=== PATIENT | female | born 1985 | race Caucasian/White ===

== ENCOUNTER → 2020-06-14 | Outpatient (CLI) | payer OTHER | LOC: COL.RAD 09:15 | DX: M51.17 Intervertebral disc disorders with radiculopathy, lumbosacral region (principal); M47.26 Other spondylosis with radiculopathy, lumbar region ==

== ENCOUNTER 2020-09-27 14:49 | Emergency (ER) | payer OTHER ==
[~2020-09-27] VITALS: Ht 157.5 cm; Wt 94.1 kg
[2020-09-27 14:53] VITALS: TEMP 98.7
[2020-09-27] MEDS ORDERED: MOTRIN 800800 MG/TAB PO (15:06)
[2020-09-27] MEDS ORDERED: CYMBALTA 60MG60 MG PO (15:06)
[2020-09-27] MEDS ORDERED: INDERAL 10MG10 MG PO (15:06)
[2020-09-27] MEDS ORDERED: TYLENOL 325MG325 MG PO (15:07)
[2020-09-27 15:50] LABS: BASO % 0.4 % (0.0-2.0); EOS # 0.2 (0.0-0.7); EOS % 1.6 % (0-4.0); GRAN # 6.7 (1.4-6.5); GRAN % 65.3 % (42.2-75.2); HEMATOCRIT 40.1 % (37.0-47.0); HEMOGLOBIN 13.8 g/dl (12.5-16.0); LYMPH # 2.7 (1.2-3.4); LYMPH % 26.5 % (20.0-51.0); MEAN CELL VOLUME 89 fl (80.0-100.0); MEAN CORPUSCULAR HEMOGLOBIN 31 pg (27.0-31.0); MEAN CORPUSCULAR HGB CONC 34 g/dl (33.0-37.0); MEAN PLATELET VOLUME 9.6 fl (7.4-10.4); MONO # 0.6 (0.1-0.6); PLATELET COUNT 310 K/mm3 (130-400); RED BLOOD COUNT 4.51 M/mm3 (4.10-5.30); REDCELL DISTRIBUTION WIDTH-CV 12.1 % (11.5-14.5)
[2020-09-27 16:01] LABS: ALANINE AMINOTRANSFERASE 13 U/L (4-34); ALBUMIN 4.5 gm/dL (3.5-5.0); ALKALINE PHOSPHATASE 93 U/L (50-136); ANION GAP 11 mmol/L (7-16); AST,SGOT 22 U/L (15-37); BILIRUBIN,TOTAL 0.4 mg/dL (0.0-1.0); BLOOD UREA NITROGEN 12 mg/dL (7-17); CALCIUM 9.2 mg/dL (8.4-10.2); CARBON DIOXIDE 22 mmol/L (22-30); CHLORIDE 106 mmol/L (98-107); CREATININE, serum 0.74 (0.52-1.25); GLUCOSE 98 mg/dL (74-106); SODIUM 139 mmol/L (137-145); TOTAL PROTEIN 7.8 gm/dL (6.4-8.2)
[2020-09-27 16:15] LABS: TROPONIN-I < 0.012 ng/mL (0.000-0.035)
[2020-09-27] MEDS ORDERED: ATIVAN 1MG T1 MG/TAB PO (16:49)
[2020-09-27 17:02] VITALS: BP 138/101; PULSE 81
== END 2020-09-27 17:05 | disposition home or self-care (01) ==
LOC: COL.ER 14:49
PROVIDERS: Physician Assistant
DX: R00.2 Palpitations (principal); I10 Essential (primary) hypertension; F41.9 Anxiety disorder, unspecified; Z32.02 Encounter for pregnancy test, result negative; Z23 Encounter for immunization
CPT/HCPCS: J2060; J7030

== ENCOUNTER → 2020-09-27 | Outpatient (CLI) | payer OTHER ==
[~2020-09-27] MED LIST: ATIVAN 1MG T1 MG/TAB PO; CYMBALTA 60MG60 MG PO; INDERAL 10MG10 MG PO; MOTRIN 800800 MG/TAB PO; TYLENOL 325MG325 MG PO
== END ==
LOC: MHCPAIN 13:26
DX: M47.817 Spondylosis without myelopathy or radiculopathy, lumbosacral region (principal); M54.5 Low back pain; M53.3 Sacrococcygeal disorders, not elsewhere classified; G89.29 Other chronic pain
CPT/HCPCS: G0463

== ENCOUNTER → 2020-10-03 | Outpatient (CLI) | payer OTHER | LOC: MHCPAIN 11:50 | DX: M47.817 Spondylosis without myelopathy or radiculopathy, lumbosacral region (principal); M54.5 Low back pain ==

== ENCOUNTER 2020-11-30 08:40 | Outpatient (RCR) | payer OTHER | END 2021-02-28 | disposition home or self-care (01) | LOC: WSPT | DX: M47.816 Spondylosis without myelopathy or radiculopathy, lumbar region (principal); M53.3 Sacrococcygeal disorders, not elsewhere classified ==

== ENCOUNTER → 2020-12-05 | Outpatient (CLI) | payer OTHER | LOC: MHCPAIN 14:43 | DX: M47.817 Spondylosis without myelopathy or radiculopathy, lumbosacral region (principal); M54.5 Low back pain | CPT/HCPCS: G0463 ==

== ENCOUNTER 2021-01-03 12:00 | Outpatient (RCR) | payer OTHER | END 2021-01-11 | LOC: WSPT | DX: M47.816 Spondylosis without myelopathy or radiculopathy, lumbar region (principal); M53.3 Sacrococcygeal disorders, not elsewhere classified ==

== ENCOUNTER → 2021-01-23 | Outpatient (CLI) | payer OTHER | LOC: MHCPAIN 09:48 | DX: M47.817 Spondylosis without myelopathy or radiculopathy, lumbosacral region (principal); M54.5 Low back pain; M79.18 Myalgia, other site; G89.29 Other chronic pain | CPT/HCPCS: G0463; J1100; J2250; J3010 ==

== ENCOUNTER 2021-02-27 12:41 | Emergency (ER) | payer OTHER ==
[~2021-02-27] VITALS: Ht 157.5 cm; Wt 97.7 kg
[2021-02-27 13:10] VITALS: BP 121/80; TEMP 98.2
[2021-02-27 16:24] VITALS: PULSE 91
== END 2021-02-27 16:25 | disposition home or self-care (01) ==
LOC: COL.ER 12:41
DX: S09.90XA Unspecified injury of head, initial encounter (principal); G44.301 Post-traumatic headache, unspecified, intractable; G43.909 Migraine, unspecified, not intractable, without status migrainosus; F17.200 Nicotine dependence, unspecified, uncomplicated; W22.8XXA Striking against or struck by other objects, initial encounter
CPT/HCPCS: J1200; J1885; J2765; J7030

== ENCOUNTER → 2021-03-22 | Outpatient (CLI) | payer OTHER | LOC: MHCPAIN 08:30 | DX: M53.3 Sacrococcygeal disorders, not elsewhere classified (principal); M54.5 Low back pain; M47.817 Spondylosis without myelopathy or radiculopathy, lumbosacral region; G89.29 Other chronic pain | CPT/HCPCS: G0463 ==

== ENCOUNTER → 2021-03-30 | Outpatient (CLI) | payer OTHER | LOC: MHCPAIN 10:38 | DX: M47.818 Spondylosis without myelopathy or radiculopathy, sacral and sacrococcygeal region (principal); M53.3 Sacrococcygeal disorders, not elsewhere classified | CPT/HCPCS: G0260; J1040; Q9967 ==

== ENCOUNTER 2021-04-06 12:04 | Outpatient (RCR) | payer OTHER | END 2021-04-07 09:26 | disposition home or self-care (01) | LOC: WSPT 12:04 | DX: M47.816 Spondylosis without myelopathy or radiculopathy, lumbar region (principal); M53.3 Sacrococcygeal disorders, not elsewhere classified ==

== ENCOUNTER → 2021-09-20 | Outpatient (CLI) | payer OTHER | LOC: MHCPAIN 10:16 | DX: M47.817 Spondylosis without myelopathy or radiculopathy, lumbosacral region (principal); M54.50 Low back pain, unspecified; M53.3 Sacrococcygeal disorders, not elsewhere classified | CPT/HCPCS: G0463 ==

== ENCOUNTER → 2021-10-12 | Outpatient (CLI) | payer OTHER | LOC: MHCPAIN 09:18 | DX: M47.817 Spondylosis without myelopathy or radiculopathy, lumbosacral region (principal); M54.50 Low back pain, unspecified; M53.3 Sacrococcygeal disorders, not elsewhere classified | CPT/HCPCS: J1040; J2250; J3010; Q9967 ==

== ENCOUNTER → 2021-12-19 | Outpatient (CLI) | payer OTHER | LOC: MHCPAIN 09:19 | DX: M47.817 Spondylosis without myelopathy or radiculopathy, lumbosacral region (principal); M54.50 Low back pain, unspecified; M53.3 Sacrococcygeal disorders, not elsewhere classified | CPT/HCPCS: G0463 ==

== ENCOUNTER 2022-03-19 19:54 | Emergency (ER) | payer OTHER ==
[~2022-03-19] VITALS: Ht 157.5 cm; Wt 79.5 kg
[2022-03-19 20:06] VITALS: TEMP 97.2
[2022-03-19 20:20] LABS: COLLECTION METHOD CLEAN CATCH
[2022-03-19 20:32] LABS: BASO # 0.1 K/mm3 (0.0-0.2); BASO % 0.5 % (0.0-2.0); EOS # 0.1 K/mm3 (0.0-0.7); GRAN # 6.5 K/mm3 (1.4-6.5); GRAN % 60.9 % (42.2-75.2); HEMATOCRIT 38.2 % (37.0-47.0); HEMOGLOBIN 13.2 g/dl (12.5-16.0); LYMPH # 3.3 K/mm3 (1.2-3.4); MEAN CELL VOLUME 90 fl (80.0-100.0); MEAN CORPUSCULAR HEMOGLOBIN 31 pg (27-31); MEAN CORPUSCULAR HGB CONC 35 g/dl (33.0-37.0); MEAN PLATELET VOLUME 9.7 fl (7.4-10.4); MONO # 0.7 K/mm3 (0.1-0.6); MONO % 6.3 % (1.7-9.3); PLATELET COUNT 273 K/mm3 (130-400); RED BLOOD COUNT 4.25 M/mm3 (4.10-5.30); REDCELL DISTRIBUTION WIDTH-CV 12.2 % (11.5-14.5)
[2022-03-19 20:33] LABS: MUCOUS Present (NOT PRESENT); PH 5 (5-8); URINE APPEARANCE Hazy (CLEAR/HAZY); URINE BACTERIA Rare /hpf (NONE SEEN); URINE BILIRUBIN Negative (NEGATIVE); URINE BLOOD 1+ (NEGATIVE); URINE COLOR Yellow (YELLOW); URINE GLUCOSE Negative (NEGATIVE); URINE KETONE Trace (NEGATIVE); URINE LEUKOCYTE ESTERASE Negative (NEGATIVE); URINE NITRATE Negative (NEGATIVE); URINE PROTEIN(semi-quant) Negative (NEGATIVE); URINE UROBILINOGEN Negative (NEGATIVE)
[2022-03-19 20:45] LABS: ALBUMIN 4.4 gm/dL (3.5-5.0); BILIRUBIN,TOTAL 0.5 mg/dL (0.2-1.2); CALCIUM 8.6 mg/dL (8.4-10.2); CREATININE, serum 0.72 mg/dL (0.57-1.11); POTASSIUM 3.5 mmol/L (3.5-4.5); TOTAL PROTEIN 7.1 gm/dL (6.2-8.1)
[2022-03-19] MEDS ORDERED: ZOFRAN ODT4 MG PO (20:49)
[2022-03-19] MEDS ORDERED: NORCO 325 MG-51 TAB PO (20:49)
[2022-03-19 21:14] VITALS: BP 140/96; PULSE 78
== END 2022-03-19 21:14 | disposition home or self-care (01) ==
LOC: COL.ER 19:54
PROVIDERS: Emergency Medicine
DX: N20.0 Calculus of kidney (principal); Z32.02 Encounter for pregnancy test, result negative
CPT/HCPCS: J1885; J2405; J7120

== ENCOUNTER → 2022-09-19 | Outpatient (CLI) | payer OTHER ==
[~2022-09-19] MED LIST changes: +NORCO 325 MG-51 TAB PO; +ZOFRAN ODT4 MG PO
== END ==
LOC: MHCPAIN 14:48
DX: M47.817 Spondylosis without myelopathy or radiculopathy, lumbosacral region (principal); M53.3 Sacrococcygeal disorders, not elsewhere classified; M54.50 Low back pain, unspecified
CPT/HCPCS: G0463

== ENCOUNTER 2023-09-16 06:48 | Emergency (ER) | payer OTHER ==
[~2023-09-16] VITALS: Ht 157.5 cm; Wt 81.8 kg
[2023-09-16 06:55] VITALS: TEMP 98.1
[2023-09-16] MEDS ORDERED: VALIUM 2MG T2 MG/TAB PO (07:32)
[2023-09-16] MEDS ORDERED: FLEXERIL 1010 MG/TAB PO (09:41)
[2023-09-16] MEDS ORDERED: NORCO 325 MG-51 TAB PO (09:41)
[2023-09-16 10:20] VITALS: BP 120/80; PULSE 58
== END 2023-09-16 10:20 | disposition home or self-care (01) ==
LOC: COL.ER 06:48
DX: M43.6 Torticollis (principal)
CPT/HCPCS: J1170; J2405; J3010; J3360

== ENCOUNTER 2023-11-21 13:00 | Outpatient (RCR) | payer OTHER ==
[~2023-11-21 13:00] MED LIST changes: +FLEXERIL 1010 MG/TAB PO; +VALIUM 2MG T2 MG/TAB PO
== END 2023-11-24 | disposition home or self-care (01) ==
LOC: MKS.ESL.PT
DX: M54.2 Cervicalgia (principal)

== ENCOUNTER → 2023-12-05 | Outpatient (CLI) | payer OTHER ==
[~2023-12-05] MED LIST changes: +Iohexol 300 - 10 ML VIAL ONE; +Lidocaine PF 2% (20 MG/ML) 2 ML VIAL ONE
== END ==
LOC: MHCPAIN 08:27
DX: M54.12 Radiculopathy, cervical region (principal)
CPT/HCPCS: J1100; Q9967